=== PATIENT | male | born 1975 | race Caucasian/White ===

== ENCOUNTER 2024-10-13 20:25 | Observation (INO) ==
[2024-10-13] MEDS ORDERED: IOPAMIDOL 100 ML BOTTLE IV ONE (20:26)
[2024-10-13] MEDS: 0.9 % SODIUM CHLORIDE 1,000 ML IV ONE (20:34)
[2024-10-13] MEDS: ONDANSETRON 4 MG/2 ML VIAL IV ONE (20:35)
[2024-10-13 20:52] LABS: Basophils # (Auto) 0.03 K/mcL (0.00-0.30); Basophils % (Auto) 0.3 % (0.0-2.0); Eosinophils # (Auto) 0.03 K/mcL (0.00-0.70); Eosinophils % (Auto) 0.3 % (0.0-7.0); Hematocrit 41.0 % (40.1-51.0); Hemoglobin 13.7 g/dL (13.7-17.5); Lymphocytes # (Auto) 1.31 K/mcL (1.50-4.80); Lymphocytes % (Auto) 11.4 % (15.5-49.0); Mean Corpuscular HGB Conc 33.4 g/dL (31.0-36.0); Monocytes # (Auto) 0.57 K/mcL (0.10-0.90); Monocytes % (Auto) 5.0 % (1.0-12.0); Neutrophils % (Auto) 81.3 % (38.0-78.0); Platelet Count 240 K/mcL (140-440); RBC 4.39 M/mcL (4.63-6.08); WBC 11.5 K/mcL (4.5-11.0)
[2024-10-13 21:10] LABS: ALT/SGPT 31 U/L (<40); AST/SGOT 30 U/L (<40); Albumin 3.9 gm/dL (3.2-5.2); Albumin/Globulin Ratio 1.4 (1.0-2.3); Alcohol,Blood < 0.010 gm/dL (<0.010); Alkaline Phosphatase 61 U/L (39-117); Anion Gap 12.0 (8.0-16.0); Bilirubin,Total 0.4 mg/dL (0.1-1.0); Blood Urea Nitrogen 18 mg/dL (6-20); Calcium 9.3 mg/dL (8.6-10.4); Carbon Dioxide 25 mmol/L (22-30); Chloride 103 mmol/L (96-108); Globulin 2.8 gm/dL (2.2-3.7); Glucose 132 mg/dL (70-105); Potassium 4.4 mmol/L (3.3-5.1); Sodium 140 mmol/L (133-145)
[2024-10-13 21:27] LABS: Acetaminophen < 5.0 ug/mL; Salicylate < 0.5 mg/dL
[2024-10-13] MEDS ORDERED: ONDANSETRON 4 MG/2 ML VIAL IV PRN (23:38)
[2024-10-13] MEDS ORDERED: KETOROLAC 15 MG/ML VIAL IV PRN (23:38)
[2024-10-13] MEDS ORDERED: NALOXONE HCL 0.4 MG/ML VIAL IV PRN (23:38)
[2024-10-13] MEDS ORDERED: ACETAMINOPHEN 325 MG TABLET PO PRN (23:38)
[2024-10-14 01:24] LABS: Barbiturate Screen,Urine None detected; Benzodiazepines Screen,Urine None detected; Fentanyl, Urine Screen Suspect Positive; Opiate Screen,Urine None detected; Oxycodone, Urine Screen None detected; Phencyclidine Screen,Urine None detected
[2024-10-14] MEDS ORDERED: MAGNESIUM SULFATE 2 GM/50 ML BAG IV PRN (07:57)
[2024-10-14] MEDS ORDERED: POLYETHYLENE GLYCOL 3350 17 GM PACKET PO PRN (07:57)
[2024-10-14] MEDS ORDERED: SENNOSIDES 1 TABLET PO PRN (07:57)
[2024-10-14] MEDS ORDERED: ONDANSETRON 4 MG/2 ML VIAL IV PRN (07:57)
[2024-10-14] MEDS ORDERED: METOCLOPRAMIDE 10 MG/2 ML VIAL IV PRN (07:57)
[2024-10-14] MEDS ORDERED: IPRATROPIUM/ALBUTEROL 3 ML AMPUL.NEB NEB PRN (07:57)
[2024-10-14] MEDS ORDERED: POTASSIUM CHLORIDE 20 MEQ TABLET PO PRN ×2 (07:57)
[2024-10-14] MEDS ORDERED: POTASSIUM CHLORIDE 40 MEQ in DEXTROSE 5% IN WATER 500 ML IV PRN (07:57)
[2024-10-14] MEDS: DOCUSATE SODIUM 100 MG CAPSULE PO SCH (08:31)
[2024-10-14] MEDS: HEPARIN 5,000 UNIT/ML VIAL SQ SCH (08:32)
[2024-10-14] MEDS ORDERED: ENOXAPARIN 30 MG/0.3 ML SYRINGE SQ SCH (09:00)
[2024-10-15 08:17] VITALS: O2SAT 96
[2024-10-15 14:07] VITALS: TEMP 98.1
== END 2024-10-15 12:30 | disposition home or self-care (01) ==
LOC: ICU 20:25 → ED 20:25 → ICU 10-14 00:45
PROVIDERS: ADMIT Internal Medicine; ATTEND Internal Medicine